=== PATIENT | female | born 1970 | race American Indian/Alaskan Native ===

== ENCOUNTER 2016-04-08 08:45 | Outpatient (CLI) | payer BC ==
--- NOTE | 2016-04-10 09:03 | Magnetic Resonance Report ---
BILATERAL BREAST MRI WITHOUT AND WITH CONTRAST: 04/08/16 08:45:00 CLINICAL: Newly diagnosed right breast cancer. 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 ER positive, NM positive and HER-2 negative. COMPARISON:03/29/16 bilateral mammogram. TECHNIQUE: Axial 1.0-mm T1 without, axial high resolution 2.0-mm T2 and axial 1.0-mm dynamic Vibrant high-resolution postcontrast T1 fat saturation sequences on a 1.5 Soha magnet. The examination was performed with an 8 channel dedicated [place] breast coil. Post processing with CAD and subtraction was performed on an [employer] workstation. 20 cc of Multihance was injected without incident for the contrast portion of the exam. Consent was obtained prior to the administration of the contrast. FINDINGS: Right: Mild background parenchymal enhancement. The known cancer is an irregular mass with the biopsy clip in the upper outer quadrant 14.9 cm from the nipple and 5.5 cm from the chest wall measuring 4.1 x 3.0 x 2.6 cm. It demonstrates heterogeneous enhancement with mixed kinetics and 44% type III washout pattern. There at least six masses or intramammary lymph nodes in the upper-outer quadrant. The largest measures 1 cm maximum diameter and is located posterior and lateral to the known cancer. All appear to have central fat and benign morphology. However, a suspicious 6 x 6 x 4 mm mass is identified in the upper-outer quadrant 8.9 cm from the nipple and 12.6 cm from the chest wall. It has no central fat to suggest that it is a lymph node. It demonstrates heterogeneous enhancement with mixed hepatic and 11% type III washout. This mass is located approximately 6 cm anterior to the known cancer. No suspicious right axillary or right internal mammary lymph nodes. Left: Mild background parenchymal enhancement. No mass or suspicious enhancement of the left breast. No suspicious lymph nodes. IMPRESSION: 1. Known 4.1 cm right breast cancer and one additional suspicious 6 mm mass in the upper outer quadrant. 2. At least six small intramammary lymph nodes versus additional masses in the upper outer quadrant of the right breast. The morphology suggests that these are benign lymph nodes but the number of lymph nodes and the localization of the lymph nodes to the upper outer quadrant suspicious make them for metastasis. 3. Negative left breast. RIGHT BI-RADS 6 -- Known Cancer LEFT BI-RADS 1 -- Negative
== END 2016-04-08 08:46 | disposition home or self-care (01) ==
LOC: SPVIMAG 08:45
PROVIDERS: ATTEND Surgery
DX: C50.919 Malignant neoplasm of unspecified site of unspecified female breast (principal)
CPT/HCPCS: 0159T; A9577; C8908; 77059

== ENCOUNTER 2016-04-17 09:01 | Outpatient (CLI) | payer BC ==
--- NOTE | 2016-04-17 10:41 | Mammography Report ---
RIGHT DIGITAL DIAGNOSTIC MAMMOGRAM: 04/17/16 09:01:00 CLINICAL: For clip placement immediately status post ultrasound biopsy. Known cancer in the upper outer quadrant 15 cm from the nipple. COMPARISON:03/29/16 FINDINGS: A biopsy clip is now identified approximately 6 cm anterior to the cancer. IMPRESSION: Concordant clip placement status post ultrasound biopsy. BI-RADS CATEGORY: 6--Known Cancer Pathology pending.
--- NOTE | 2016-04-17 11:58 | Ultrasound Report ---
VACUUM ASSISTED ULTRASOUND GUIDED NEEDLE CORE BIOPSY WITH CLIP PLACEMENT RIGHT BREAST : 04/17/16 09:01:00 CLINICAL: Known right breast cancer and an additional suspicious lesion at 11 o'clock 8 cm from the nipple. COMPARISON :Recent MRI FINDINGS: The procedure was explained to the patient and informed consent was obtained. Ultrasound demonstrated a a 6 mm mass at 11 o'clock 8 cm from the nipple that appears to correspond to the finding on MRI. The skin was prepped with Betadine and anesthetized with 1% lidocaine. Vacuum-assisted needle core biopsy was performed through a small dermatotomy using ultrasound guidance, 2% lidocaine with epinephrine for deep anesthesia and a 13-gauge Elite biopsy probe. Imaging demonstrated satisfactory sampling. Multiple cores were obtained and placed in formalin. An 11-gauge Mammostar barbell shape clip was then placed within the lesion. Hemostasis was achieved with mild pressure and a sterile dressing was applied. The patient tolerated the procedure well and there were no apparent complications. A two view mammogram demonstrated concordant clip placement. The patient left the department in good condition with instructions for wound care and follow up. IMPRESSION: Uncomplicated vacuum-assisted ultrasound core biopsy and clip placement right breast.
== END 2016-04-17 09:02 | disposition home or self-care (01) ==
LOC: SPVWC 09:01
PROVIDERS: ATTEND Surgery
DX: C50.411 Malignant neoplasm of upper-outer quadrant of right female breast (principal); N63 Unspecified lump in breast
CPT/HCPCS: 19083; 88305; A4648; G0206; 88341; 88342; 88361

== ENCOUNTER 2016-07-01 06:19 | Day surgery (SDC) | payer BC ==
[~2016-07-01 06:19] MED LIST: MARCAINE 0.25% INFILTRATI ONE; XYLOCAINE 1% 20 mL INFILTRATI ONE
[2016-07-01] MEDS ORDERED: DILAUDID ONE (06:44)
[2016-07-01] MEDS ORDERED: DIPRIVAN 10 MG/ML IV ONE (06:44)
[2016-07-01] MEDS ORDERED: XYLOCAINE MPF 2% ONE (06:44)
[2016-07-01] MEDS ORDERED: NACL BACTERIOSTATIC INFILTRATI ONE (06:56)
[2016-07-01] MEDS ORDERED: MARCAINE 0.5% 30 ML INFILTRATI ONE (06:58)
[2016-07-01] MEDS ORDERED: PEPCID PO NR (07:00)
[2016-07-01] MEDS ORDERED: LACTATED RINGERS 1,000 ML IV SCH (07:00)
[2016-07-01] MEDS ORDERED: ANCEF/STERILE WATER 2 GM/20 ML IV NR (07:00)
[2016-07-01] MEDS ORDERED: XYLOCAINE 1% 20 mL ONE (07:01)
--- NOTE | 2016-07-01 07:09 | Anesthesia Day of Surgery ---
Anesthesia Day of Surgery - Day of Surgery Patient Examined: Yes Patient H&P Reviewed: Yes Patient is NPO: Yes Beta Blockers: Yes
--- NOTE | 2016-07-01 07:10 | Anesthesia Consultation ---
Anesthesia Consult and Med Hx - Airway Anesthetic Teeth Evaluation: Good ROM Head & Neck: Adequate Mental/Hyoid Distance: Adequate Mallampati Class: Class II Intubation Access Assessment: Probably Good - Pulmonary Exam CTA: Yes - Cardiac Exam Cardiac Exam: RRR - Pre-Operative Health Status ASA Pre-Surgery Classification: ASA2 Proposed Anesthetic Plan: General - Pulmonary Hx Smoking: No Hx Sleep Apnea: No - Central Nervous System Hx Psychiatric Problems: No - Other Systems Hx Cancer: Yes (RIGHT BREAST, DX: 03/2016) Hx Obesity: No - Additional Comments Anesthesia Medical History Comments: NPO after MN. No complications with past anesthestics. Hx of Breast Cancer
[2016-07-01] MEDS: VERSED IV NR ×2 (07:25→07:43)
[2016-07-01] MEDS ORDERED: MARCAINE 0.25% INFILTRATI ONE ×2 (07:44→08:55)
[2016-07-01] MEDS ORDERED: DECADRON ONE (08:06)
[2016-07-01] MEDS ORDERED: ZOFRAN ONE (08:06)
[2016-07-01] MEDS ORDERED: XYLOCAINE 1% 20 mL INFILTRATI ONE (08:50)
--- NOTE | 2016-07-01 09:07 | Short Stay Summary ---
Short Stay Documentation - History H&P: obtained from office - Allergies and Medications Current Medications: Allergies No Known Allergies Allergy (Verified 05/04/16 10:29) Home Medications Medication Instructions Recorded Confirmed Last Taken Type medroxyPROGESTERone ACETATE 150 mg IM Q3M 06/26/16 06/26/16 Unknown History [Depo-Provera (Contraception)] HYDROcodone/APAP 5-325 [[place] 1 each PO Q6HR PRN #30 tablet 07/01/16 Unknown Rx 5/325] Active Medications Cefazolin Sodium (Ancef/Sterile Water 2 Gm/20 Ml) 2 gm IV PREOP NR Stop: 07/01/16 23:59 Lactated Ringer's (Lactated Ringers) 1,000 mls @ 100 mls/hr IV DIRECT BRADEN Last Admin: 07/01/16 07:03 Dose: 100 mls/hr Midazolam HCl (Versed) 2 mg IV PREOP NR Stop: 07/01/16 23:59 Last Admin: 07/01/16 07:43 Dose: 1 mg - Brief post op/procedure progress note Date of procedure: 07/01/16 Pre-op diagnosis: Right breast cancer of the upper outer quadrant Post-op diagnosis: same Procedure: Right breast margin revision of partial mastectomy Anesthesia: GETA Findings: Right breast margin revision Surgeon: SRINI MACEDO Estimated blood loss: minimal Pathology: list (right breast margin revision) Specimen disposition: to lab Condition: stable - Disposition Condition at discharge: Good Disposition: DISCHARGED TO HOME OR SELFCARE Short Stay Discharge Plan Activity: other (no heay lifting) Diet: regular Wound: other (keep incision clean and dry; may shower in 24 hours; no baths, pools or lakes; do not rub or scrub incision) Follow up with: REGINO PETERSON MD [Primary Care Provider] - 7 Days SRINI MACEDO MD [Staff Physician] - 7 Days Prescriptions: HYDROcodone/APAP 5-325 [[place] 5/325] 1 each PO Q6HR PRN #30 tablet PRN Reason: Pain
--- NOTE | 2016-07-01 09:15 | Operative Report ---
Operative Report Operative Report: Date of procedure:July 01, 2016 Pre-operative diagnosis: Right breast cancer of the upper outer quadrant Post-operative diagnosis: Same Procedure name(s): Right breast partial mastectomy margin revision Surgeon: Makeda Dodge MD Anesthesia: General Findings: Right breast margin revision Drains: None Complications: None Disposition: PACU in good condition Indications for operative procedure: This is a 46-year-old lady with newly diagnosed right breast cancer of the upper outer quadrant. Patient recently underwent a right partial mastectomy with sentinel lymph node biopsy with findings of multifocal right breast cancer and metastatic axillary toby involvement. Recommendations were to proceed with a total mastectomy with axillary lymph node dissection given concerns of additional cancer that was not noted on imaging and given focality of her breast cancer. Patient only wanted to proceed with margin revision of bridging tissue between to surgical incision sites at the 11 o'clock position 8 cm from the nipple and at the 11 o'clock position 14 cm from the nipple. Patient understood recommendations are for adjuvant radiation therapy and chemotherapy. Procedure in Detail: Patient was taken to the operating room and was laid supine. Gen. anesthesia was administered. The right breast was prepped and draped in the normal sterile operative fashion. Timeout was performed. The skin incisions from prior surgery at 11 o'clock position were opened with a 15 blade knife. Seroma cavity was drained. The bridging tissue from both incision sites was appropriately removed after grasped with [place] and removed with the aid of Bovie cautery. Hemostasis was noted. The specimen was appropriately marked. Posterior was noted to be muscle. Breast cavity was irrigated and suctioned. The subcutaneous tissue of both incisions were approximated and brought together with interrupted 3-0 Vicryl and the skin was closed of both incisions with a running 4-0 Monocryl and skin affix. She tolerated surgery very well and was awakened from anesthesia without any complications and transported to PACU in good condition.
[2016-07-01] MEDS: DILAUDID IV PRN ×2 (09:37→09:46)
[2016-07-01] MEDS ORDERED: ZOFRAN IV PRN (10:00)
[2016-07-01 10:54] VITALS: BP 121/71
--- NOTE | 2016-07-01 11:08 | Post Anesthesia Evaluation ---
- Post Anesthesia Evaluation Patient Participated: Yes Airway Patent: Yes Stable Respiratory Function: Yes Nausea/Vomiting: No Temp > 96.8F: Yes Pain Manageable: Yes Adequeate Hydration: Yes Anesthesia Complications: No
== END 2016-07-01 10:50 | disposition home or self-care (01) ==
LOC: OR 06:19
PROVIDERS: ATTEND Surgery
DX: C50.411 Malignant neoplasm of upper-outer quadrant of right female breast (principal); Z72.89 Other problems related to lifestyle
CPT/HCPCS: 19301; 81025; 88307; J0690; J1100; J1170; J2250; J2405; J2704; J7120